=== PATIENT | female | born 1995 | race Caucasian/White ===

== ENCOUNTER 2018-08-30 10:37 | Emergency (ER) | payer OTHER ==
[2018-08-30 10:53] VITALS: BP 133/56; PULSE 96; TEMP 98; BMI 17.9
[2018-08-30] MEDS ORDERED: METOCLOPRAMIDE HCL INJECTION 10 MG/2 ML VIAL IM ONE (11:33)
[2018-08-30] MEDS ORDERED: ACETAMINOPHEN 1000 MG/100 ML VIAL (NON FORMULARY) IVPB ONE (11:33)
[2018-08-30] MEDS ORDERED: SODIUM CHLORIDE 0.9% 500 ML INFUS.BAG IV ONE (11:34)
[2018-08-30] MEDS ORDERED: METOCLOPRAMIDE HCL INJECTION 10 MG/2 ML VIAL ONE (11:40)
[2018-08-30] MEDS ORDERED: ACETAMINOPHEN INJECTION 100 ML IVPB ONE (11:45)
--- NOTE | 2018-08-30 12:28 | PDOC ---
History of Present Illness - General Chief Complaint: Headache Stated Complaint: HEADACHE Time Seen by Provider: 08/30/18 11:03 - History of Present Illness Initial Comments: 08/30/18 12:23 22-year-old female without comorbidities presents for evaluation of headache 3 days. She describes her headache as a bandlike headache exacerbated with light and noise minimally relieved with rest and Tylenol. She does have a history of a prior concussion. Past History - Past Medical History Allergies/Adverse Reactions: Allergies Allergy/AdvReac Type Severity Reaction Status Date / Time No Known Allergies Allergy Verified 08/30/18 10:49 Home Medications: Ambulatory Orders NK [No Known Home Medication] 08/30/18 Asthma: No Cancer: No Cardiac Disorders: No COPD: No Diabetes: No GI Disorders: Yes (gastritis) HTN: No Seizures: No Thyroid Disease: No - Reproductive History Cervical CA: No Dysfunctional Uterine Bleeding: No Ectopic : No Endometrial CA: No Polycystic Ovaries: No Tubal Ligation: No - Immunization History Immunization Up to Date: Yes - Suicide/Smoking/Psychosocial Hx Smoking Status: No Smoking History: Never smoked Years of Tobacco Use: 0 Have you smoked in the past 12 months: No Number of Cigarettes Smoked Daily: 0 Cigars Per Day: 0 Hx Alcohol Use: No Drug/Substance Use Hx: No Substance Use Type: None Hx Substance Use Treatment: No Review of Systems - Review of Systems ABD/GI: Yes: Nausea Neurological: Yes: Headache All Other Systems: Reviewed and Negative *Physical Exam - Vital Signs Last Vital Signs Temp Pulse Resp BP Pulse Ox 98.0 F 96 H 18 133/56 L 99 08/30/18 10:49 08/30/18 10:49 08/30/18 10:49 08/30/18 10:49 08/30/18 10:49 - Physical Exam Comments: 08/30/18 12:28 HEAD: NC/AT EYES: Conjuntiva clear, PERRL EOMI Ears: Canals and TM's normal NOSE: No d/c THROAT: Moist mucous membrances, oral pharanx clear, uvula midline NECK: Supple without adenopathy CARDIAC: S1 S2 LUNGS: CTA Full and Equal breath sounds ABDOMEN: Soft NT ND MS: Full ROM in all joints without edema NEUROLOGIC: No gross sensory or motor deficits, NVID SKIN: Normal color and temperature no lesions or rashes ED Treatment Course - ADDITIONAL ORDERS Additional order review: Laboratory Results 08/30/18 11:00 Urine HCG, Qual Negative - Medications Given in the ED: ED Medications Discontinued Medications Generic Name Dose Route Start Last Admin Trade Name Vin PRN Reason Stop Dose Admin Acetaminophen 1,000 mg 08/30/18 11:33 08/30/18 12:15 Ofirmev Injection - IVPB 08/30/18 11:34 Not Given ONCE ONE Metoclopramide HCl 10 mg 08/30/18 11:33 08/30/18 12:15 Reglan Injection - IM 08/30/18 11:34 10 mg ONCE ONE Administration Sodium Chloride 1,000 ml 08/30/18 11:34 08/30/18 12:15 Normal Saline - IV 08/30/18 11:35 1,000 ml ONCE ONE Administration Medical Decision Making - Medical Decision Making 08/30/18 12:28 Headache relieved with Reglan and fluid bolus. Patient did take Tylenol prior to arrival which she did not tell me until later on although she was asked. Follow-up with neurology *DC/Admit/Observation/Transfer Diagnosis at time of Disposition: Migraine - Discharge Dispostion Disposition: HOME Condition at time of disposition: Improved Decision to Admit order: No - Referrals Referrals: Artemio Yee MD [Primary Care Provider] - Lanre Jarrett MD [Staff Physician] - - Patient Instructions Printed Discharge Instructions: Migraine -- Adult, DI for Migraine Additional Instructions: Please take Tylenol and Motrin as directed for headache should return. Return to the emergency room should symptoms come back follow-up with neurology in one to 2 days for further evaluation and treatment options. - Post Discharge Activity
== END 2018-08-30 13:00 | disposition home or self-care (01) ==
LOC: JERFT 10:37
PROC: 3E0233Z Introduction of Anti-inflammatory into Muscle, Percutaneous Approach (ICD-10-PCS; principal; 2018-08-30)
DX: G43.909 Migraine, unspecified, not intractable, without status migrainosus (principal)
CPT/HCPCS: 84703; 96372; 99281-25

== ENCOUNTER 2019-01-03 11:34 | Emergency (ER) | payer OTHER ==
[2019-01-03 11:50] VITALS: BP 100/67; PULSE 84; TEMP 97.6; BMI 13.7
--- NOTE | 2019-01-03 13:19 | PDOC ---
History of Present Illness - General Chief Complaint: Cold Symptoms Stated Complaint: COUGH/SORE THROAT Time Seen by Provider: 01/03/19 12:36 History Source: Patient Exam Limitations: No Limitations Past History - Past Medical History Allergies/Adverse Reactions: Allergies Allergy/AdvReac Type Severity Reaction Status Date / Time No Known Allergies Allergy Verified 08/30/18 10:49 Home Medications: Ambulatory Orders NK [No Known Home Medication] 08/30/18 Asthma: No Cancer: No Cardiac Disorders: No COPD: No Diabetes: No GI Disorders: Yes (gastritis) HTN: No Seizures: No Thyroid Disease: No - Reproductive History Cervical CA: No Dysfunctional Uterine Bleeding: No Ectopic : No Endometrial CA: No Polycystic Ovaries: No Tubal Ligation: No - Immunization History Immunization Up to Date: Yes - Suicide/Smoking/Psychosocial Hx Smoking Status: No Smoking History: Never smoked Years of Tobacco Use: 0 Have you smoked in the past 12 months: No Number of Cigarettes Smoked Daily: 0 Cigars Per Day: 0 Information on smoking cessation initiated: No Hx Alcohol Use: No Drug/Substance Use Hx: No Substance Use Type: None Hx Substance Use Treatment: No *Physical Exam - Vital Signs Last Vital Signs Temp Pulse Resp BP Pulse Ox 97.6 F 84 18 100/67 98 01/03/19 11:47 01/03/19 11:47 01/03/19 11:47 01/03/19 11:47 01/03/19 11:47 - Physical Exam General Appearance: No: Apparent Distress HEENT: positive: Normal ENT Inspection, TMs Normal, Pharynx Normal Respiratory/Chest: positive: Lungs Clear, Normal Breath Sounds. negative: Respiratory Distress Cardiovascular: positive: Regular Rhythm, Regular Rate, S1, S2. negative: Murmur Gastrointestinal/Abdominal: positive: Normal Bowel Sounds, Soft. negative: Tender, Distended, Guarding, Rebound Integumentary: positive: Normal Color Neurologic: positive: Alert, Normal Mood/Affect Moderate Sedation - Procedure Monitoring Vital Signs: Procedure Monitoring Vital Signs Temperature 97.6 F 01/03/19 11:47 Pulse Rate 84 01/03/19 11:47 Respiratory Rate 18 01/03/19 11:47 Blood Pressure 100/67 01/03/19 11:47 O2 Sat by Pulse Oximetry (%) 98 01/03/19 11:47 Medical Decision Making - Medical Decision Making 23 y/o F with no sig pmh presents with dry cough x 1 week along with sore throat, rhinorrhea, nasal congestion and some post-tussive emesis. States multiple members of her family are sick with cold. Denies fever, sob, cp, abd pain, diarrhea. Patient appears well Lungs clear, afebrile Not suspicious for PNA Likely viral URI Stable for dc 01/03/19 13:15 *DC/Admit/Observation/Transfer Diagnosis at time of Disposition: Viral URI - Discharge Dispostion Disposition: HOME Condition at time of disposition: Stable Decision to Admit order: No - Referrals Referrals: Artemio Yee MD [Primary Care Provider] - 2 Days - Patient Instructions Printed Discharge Instructions: DI for Viral Upper Respiratory Infection -- Adult Additional Instructions: Thank you for choosing [facility]. It was a pleasure taking care of you. Use saline nasal spray to help with congestion Can also try Nedi-Pot Use Robitussin as needed for cough Follow-up with your doctor in 2-3 days. Return to the Emergency Department if your symptoms worsen or persist or have other concerning symptoms. - Post Discharge Activity
== END 2019-01-03 13:25 | disposition home or self-care (01) ==
LOC: JERFT 11:34
DX: J06.9 Acute upper respiratory infection, unspecified (principal); B97.89 Other viral agents as the cause of diseases classified elsewhere; Z87.19 Personal history of other diseases of the digestive system
CPT/HCPCS: 99281-25

== ENCOUNTER 2024-01-01 20:48 | Emergency (ER) | payer OTHER ==
[2024-01-01 20:54] VITALS: BP 102/59; PULSE 93; RESP 20; TEMP 100.1; BMI 15.6
[2024-01-01] MEDS ORDERED: ONDANSETRON *ODT* 4 MG TABLET ONE (21:25)
[2024-01-01] MEDS: ONDANSETRON *ODT* 4 MG TABLET SL ONE (21:26)
[2024-01-01] MEDS ORDERED: IBUPROFEN 600 MG TABLET (FP) PO ONE (21:51)
[2024-01-01] MEDS: IBUPROFEN 600 MG TABLET (FP) PO ONE (22:02)
== END 2024-01-01 22:58 | disposition home or self-care (01) ==
LOC: JERFT 20:48
DX: J11.1 Influenza due to unidentified influenza virus with other respiratory manifestations (principal); B34.9 Viral infection, unspecified; J00 Acute nasopharyngitis [common cold]; R11.0 Nausea
CPT/HCPCS: 99283-25; Q0162

== ENCOUNTER 2025-05-18 18:29 | Emergency (ER) | payer OTHER ==
[2025-05-18 18:39] VITALS: BP 109/61; PULSE 61; RESP 18; TEMP 98.5; BMI 16.6
[2025-05-18] MEDS ORDERED: ACETAMINOPHEN INJECTION 100 ML ONE (19:49)
[2025-05-18] MEDS ORDERED: METOCLOPRAMIDE HCL INJECTION 10 MG/2 ML VIAL ONE (19:50)
[2025-05-18] MEDS: LACTATED RINGERS SOLUTION 1000 ML INFUS.BAG IV ONE (20:08)
[2025-05-18] MEDS: ACETAMINOPHEN 1000 MG/100 ML BAG IVPB ONE (20:25)
[2025-05-18] MEDS: METOCLOPRAMIDE HCL INJECTION 10 MG/2 ML VIAL IVPB ONE (21:00)
[2025-05-19 00:46] LABS: HCV DIAGNOSTIC IN-HOUSE W/RFLX NON-REACTIVE (NONREACTIVE)
[2025-05-19 00:48] LABS: HIV INTERPRETATION NEGATIVE (NEGATIVE)
== END 2025-05-18 21:17 | disposition home or self-care (01) ==
LOC: JER 18:29
PROC: 3E033NZ Introduction of Analgesics, Hypnotics, Sedatives into Peripheral Vein, Percutaneous Approach (ICD-10-PCS; principal; 2025-05-18)
PROC: 3E033GC Introduction of Other Therapeutic Substance into Peripheral Vein, Percutaneous Approach (ICD-10-PCS; 2025-05-18)
DX: R51.9 Headache, unspecified (principal); H53.149 Visual discomfort, unspecified
CPT/HCPCS: 36415; 84703; 86803; 87389; 99284-25